=== PATIENT | female | born 1945 | race Caucasian/White ===

== ENCOUNTER 2021-06-04 08:01 | Outpatient (CLI) | payer MEDICARE, SELFPAY ==
--- NOTE | 2021-06-04 08:08 | MM_ITS ---
WS: [id number] VIEWS: MLO, CC, and ML views both breasts. 3D digital tomosynthesis is also included in this exam. Comparison made with prior exam of 12/16/2018 and 03/07/2020. Findings: There was no sign of mass, architectural distortion or suspicious calcification in either breast. Sta ble appearing postoperative and postradiation changes noted bilaterally.Scattered fibroglandular dens ities MM/[place] [id number] Impression: BI-RADS: 2-Benign FOLLOW-UP: 1 Year Follow-up This mammogram was also analyzed by the Computer Aided Detection System R2 Imag e Project Specialist.
== END 2021-06-04 08:02 | disposition home or self-care (01) ==
LOC: RADSHAW 08:03
PROVIDERS: PCP Internal Medicine; Visit Provider Internal Medicine
DX: Z85.3 Personal history of malignant neoplasm of breast (principal)
CPT/HCPCS: 77062

== ENCOUNTER → 2022-04-01 10:56 | Outpatient (BNVA) | payer MEDICARE, SELFPAY | PROVIDERS: PCP Family Medicine; Visit Provider Family Medicine | DX: E11.9 Type 2 diabetes mellitus without complications (principal); E78.5 Hyperlipidemia, unspecified | CPT/HCPCS: 80053; 80061; 83036; 85025 ==

== ENCOUNTER 2022-06-17 12:16 | Outpatient (CLI) | payer MEDICARE, SELFPAY ==
--- NOTE | 2022-06-17 12:24 | MM_ITS ---
WS: [id number] BILATERAL 3D TOMOSYNTHESIS DIGITAL DIAGNOSTIC MAMMOGRAPHY WITH CAD CLINICAL INFORMATION: ANNUAL - HX BREAST CA HISTORY: History of bilateral breast cancer. COMPARISON: June 04, 2021 TECHNIQUE: Bilateral CC, MLO, and ML views. FINDINGS: Scattered fibroglandular densities bilaterally. Surgical clips LEFT breast. Dystrophic calcifications RIGHT breast. RIGHT breast lucent centered calcifications. Volume loss RIGHT breast. Postoperative a nd postradiation changes bilaterally. No suspicious focal mass, asymmetry, calcifications, or architectural distortion. No evidence of jane gnancy. MM/[place] [id number] IMPRESSION: BI-RADS: 2-Benign FOLLOW UP: 1 Year Follow-up Recommend return to annual diagnostic mammography.
== END 2022-06-17 12:17 | disposition home or self-care (01) ==
LOC: RAD 12:18
PROVIDERS: PCP Family Medicine; Visit Provider Family Medicine
DX: Z12.31 Encounter for screening mammogram for malignant neoplasm of breast (principal); Z85.3 Personal history of malignant neoplasm of breast
CPT/HCPCS: 77062; G0279

== ENCOUNTER → 2022-07-23 11:22 | Outpatient (BNVA) | payer MEDICARE, SELFPAY | PROVIDERS: PCP Family Medicine; Visit Provider Family Medicine | DX: E11.9 Type 2 diabetes mellitus without complications (principal) | CPT/HCPCS: 80053; 83036 ==

== ENCOUNTER → 2023-02-21 15:04 | Outpatient (BNVA) | payer MEDICARE, SELFPAY | PROVIDERS: PCP Family Medicine; Visit Provider Family Medicine | DX: E11.9 Type 2 diabetes mellitus without complications (principal); K22.70 Barrett's esophagus without dysplasia | CPT/HCPCS: 80053; 82607; 83036 ==

== ENCOUNTER 2023-06-19 12:57 | Outpatient (CLI) | payer MEDICARE, SELFPAY ==
--- NOTE | 2023-06-19 13:05 | MM_ITS ---
WS: [id number] BILATERAL 3D TOMOSYNTHESIS DIGITAL DIAGNOSTIC MAMMOGRAPHY WITH CAD CLINICAL INFORMATION: Hx of Breast CA HISTORY: Bilateral breast cancer. COMPARISON: 2022 TECHNIQUE: Bilateral CC, MLO, and ML views. FINDINGS: Scattered fibroglandular densities bilaterally. Stable dystrophic calcifications upper outer RIGHT br east. Numerous eggshell lucent centered calcifications. Stable postoperative changes lumpectomy LEFT breast with treatment related changes bilaterally. Surgical clips LEFT breast. Surgical clips RIGHT a xilla. No suspicious focal mass, asymmetry, calcifications, or architectural distortion. No evidence of jane gnancy. IMPRESSION: MM/[place] [id number] BI-RADS: 2-Benign FOLLOW UP: 1 Year Follow-up Recommend return to annual diagnostic mammography.
== END 2023-06-19 12:58 | disposition home or self-care (01) ==
LOC: RAD 12:58
PROVIDERS: PCP Family Medicine; Visit Provider Family Medicine
DX: Z85.3 Personal history of malignant neoplasm of breast (principal); R92.323 Mammographic fibroglandular density, bilateral breasts; R92.1 Mammographic calcification found on diagnostic imaging of breast; Z98.890 Other specified postprocedural states
CPT/HCPCS: 77062; G0279

== ENCOUNTER → 2023-08-11 14:04 | Outpatient (BNVA) | payer MEDICARE, SELFPAY | PROVIDERS: PCP Family Medicine; Visit Provider Family Medicine | DX: E11.9 Type 2 diabetes mellitus without complications (principal) | CPT/HCPCS: 83036; 85025 ==

== ENCOUNTER 2023-11-10 19:10 | Emergency (ER) | payer MEDICARE, SELFPAY ==
[2023-11-10 19:16] VITALS: BP 147/74; PULSE 93; RESP 16; TEMP 36.8; O2SAT 90; BMI 25.7
--- NOTE | 2023-11-10 19:25 | XRR_ITS ---
PROCEDURE INFORMATION: Exam: XR Chest Exam date and time: 11/10/2023 7:36 PM Age: 78 years old Clinical indication: Other: Possible fb TECHNIQUE: Imaging protocol: Radiologic exam of the chest. Views: 1 view. COMPARISON: No relevant prior studies available. FINDINGS: Lungs: Moderate COPD. Lung base atelectasis or scarring. No consolidation. Scattered bilateral chest area clips are noted. Advise correlation. Pleural spaces: Unremarkable. No pleural effusion. No pneumothorax. Heart/Mediastinum: Advanced diffuse vascular calcification noted. No cardiomegaly. Bones/joints: Unremarkable. XR/XR chest 1V portable [id number] IMPRESSION: 1. No suspicious foreign body noted. 2. A few other chronic/incidental findings above.
--- NOTE | 2023-11-10 19:25 | XRR_ITS ---
PROCEDURE INFORMATION: Exam: XR Soft Tissue Neck Exam date and time: 11/10/2023 7:37 PM Age: 78 years old Clinical indication: Other: Possible fb TECHNIQUE: Imaging protocol: Radiologic exam of the soft tissues of the neck. COMPARISON: CR (CHEST, ) 11/10/2023 7:36 PM FINDINGS: Airway: Normal. No abnormal narrowing. Soft tissues: Normal. Normal epiglottis. Bones/joints: DJD. XR/XR soft tissue neck [id number] IMPRESSION: No neck foreign body noted.
[2023-11-10 21:22] VITALS: BP 119/69; RESP 14; O2SAT 99
[2023-11-10] MEDS: lidocaine 2% viscous 15 ML, aluminum-mag hydrox-simethicon 30 ML, sucralfate oral liq 1 GM PO (21:28)
[2023-11-10 22:20] VITALS: BP 157/76; PULSE 97; RESP 16; O2SAT 96
[2023-11-10] MEDS: dexamethasone 10 mg/mL INJ IM (22:21)
[2023-11-10 22:22] VITALS: BP 157/76; PULSE 97; RESP 16; O2SAT 96
--- NOTE | 2023-11-11 00:19 | W.ED.GENADLT ---
HPI - General Adult General: Chief complaint: Airway/Esophagus Foreign Body Stated complaint: throat swollen, possible object. Time Seen by Provider: 11/10/23 20:32 Source: patient Mode of arrival: ambulatory Limitations: no limitations History of Present Illness: Patient is a 78-year-old female presenting to the emergency department complaining of food bolus onset earlier today. States she was eating food she felt some of that get stuck, has a history of Alarcon's esophagus and feels that some of that food is still stuck. States that her throat hurts anytime she swallows and every time she tries to drink water she is unable to keep it down. Has not had a scope in 3 years. Noted to be 90% on room air on initial evaluation in triage. MD complaint: Potential Food bolus Onset (ago): hour(s) Associated symptoms: Deny chest pain, dyspnea, headache(s), nausea, rash, palpitations or vomiting Related Data Home Medications Medication Instructions Recorded Confirmed ascorbate calcium (vitamin C) 500 500 mg PO DAILY 04/01/22 09/07/23 mg tablet cholecalciferol (vitamin D3) 25 25 mcg PO DAILY 04/01/22 09/07/23 mcg (1,000 unit) capsule minerals tab PO 04/01/22 09/07/23 Previous Rx's Medication Instructions Recorded irbesartan 300 mg tablet 300 mg PO DAILY #90 tabs 02/21/23 pantoprazole 40 mg tablet,delayed 40 mg PO QAM #90 tabs 02/21/23 release metformin 500 mg tablet,extended 500 mg PO BID #180 tabs 04/28/23 release 24 hr ferrous sulfate 325 mg (65 mg 325 mg PO .q48 3 months #45 tabs 08/13/23 iron) tablet (Feosol) hydrochlorothiazide 25 mg tablet 25 mg PO DAILY #90 tabs 08/13/23 simvastatin 40 mg tablet 40 mg PO DAILY #90 tabs 10/15/23 prednisone 20 mg tablet 60 mg (3 x 20 mg) PO ONCE 5 days 11/10/23 #15 tabs Allergies Allergy/AdvReac Type Severity Reaction Status Date / Time colistin [From Coly-Mycin S] Allergy Severe unknown Verified 09/07/23 14:27 erythromycin base Allergy Severe unknown Verified 09/07/23 14:27 [From E-Mycin] hydrocortisone Allergy Severe unknown Verified 09/07/23 14:27 [From Coly-Mycin S] neomycin [From Coly-Mycin S] Allergy Severe unknown Verified 09/07/23 14:27 thonzonium bromide Allergy Severe unknown Verified 09/07/23 14:27 [From Coly-Mycin S] Review of Systems General: Reports: 10 or more systems reviewed and unremarkable except in HPI and below Const: Reports: other (Potential Food bolus); Denies: fever(s), chills or fatigue Eyes: Denies: change in vision ENMT: Reports: throat pain and odynophagia; Denies: ear or mastoid pain or nasal discharge Card: Denies: chest pain, palpitations, swelling of feet/ankles or lightheadedness Resp: Denies: dyspnea, productive cough or wheezing GI: Denies: abdominal pain, nausea, vomiting, diarrhea or constipation : Denies: flank pain, difficulty voiding, dysuria or urinary frequency Musc: Denies: neck pain, back pain or joint pain Skin/Breast: Denies: rash Neuro: Denies: headache(s), numbness in extremities or weakness in extremities PFSH ED PFSH: Medical History GERD (gastroesophageal reflux disease) Hiatal hernia Breast cancer Type 2 diabetes mellitus Essential hypertension Alarcon esophagus Surgical History H/O lumpectomy x2 Family History Mother No problems noted. Father Diabetes Sister Cancer Non-hodgkins lymphoma Denies family history of CAD (coronary artery disease) Clotting disorder Dementia Heart disease Hyperlipidemia Psychiatric illness Chronic kidney disease (CKD) Anesthesia complication Bleeding disorder Lung disease Hypertension Stroke Social History Smoking and tobacco/nicotine status: unknown if used tobacco/nicotine Quit status (tobacco/nicotine): has quit using Year quit tobacco: 2001 Alcohol intake: current Alcohol intake frequency: holidays/special occasions only Substance/Drug Use: never Caregiver/support person: No Lives independently: Yes Marital status: / Number of children: 0 service: No Current occupational status: retired Pets and animals: Yes (cat) Physical Exam Const: COMMON NORMALS: no acute distress, average body habitus, patient oriented x3, no limitations, healthy appearing, alert and well nourished GENERAL APPEARANCE: cooperative and comfortable ORIENTATION/CONSCIOUSNESS: Yes awake HENMT: COMMON NORMALS: normocephalic, atraumatic, hearing grossly normal bilaterally, external ears normal, Normal external nose present, Normal nasal mucous membranes and turbinates present and moist oral mucous membranes HEAD & SCALP: normocephalic and atraumatic NOSE: Normal external nose present and Normal nasal mucous membranes and turbinates present EXTERNAL EAR: Yes external ears normal Eye: COMMON NORMALS: Equal, round and reactive pupils present, EOMs intact bilaterally, conjunctivae normal and normal visual machado by confrontation CONJUNCTIVA: Yes conjunctivae normal PUPIL: Yes Equal, round and reactive pupils present Neck/C-Spine: COMMON NORMALS: full ROM, supple, no meningeal signs and no JVD Resp: COMMON NORMALS: normal respiratory effort, No retractions, No use of accessory muscles and clear to auscultation bilaterally AUSCULTATION: clear to auscultation bilaterally, no crackles, no rales, no rhonchi and no wheezes Cardio: COMMON NORMALS: no JVD, regular rate, regular rhythm, S1 normal heart sound present, S2 normal heart sound present, No gallops present (Cardio), No clicks present (Cardio), No murmurs present (Cardio), No rub (Cardio) and Peripheral pulses 2+ throughout RATE: regular rate RHYTHM: regular rhythm HEART SOUNDS: S1 normal heart sound present and S2 normal heart sound present PERIPHERAL PULSES: Peripheral pulses 2+ throughout GI: COMMON NORMALS: Normal to inspection, nondistended, normoactive bowel sounds present, Soft to palpation, non-tender, No hepatosplenomegaly present and no masses AUSCULTATION: Yes normoactive bowel sounds PALPATION: Yes Soft to palpation, No Guarding due to palpation present (GI), No Rigid due to palpation and Yes No hepatosplenomegaly present RECTAL EXAM: deferred : COMMON NORMALS: Yes no CVA tenderness BLADDER/KIDNEY EXAM: Yes no CVA tenderness Back/Pelvis: COMMON NORMALS: no CVA tenderness Extremity: COMMON NORMALS: normal to inspection and full ROM Neuro: COMMON NORMALS: patient oriented x3, moves all extremities, no focal motor deficits and no sensory deficits noted SENSORIUM/ORIENTATION: Yes alert MENINGEAL SIGNS: Yes no meningeal signs Psych: COMMON NORMALS: mental status grossly normal, cooperative and speech normal SPEECH: Yes normal speech Skin: COMMON NORMALS: no rashes or lesions noted GENERAL SKIN EXAM: no rashes or lesions noted Course Vital Signs: Vital signs: Vital Signs Temperature 98.2 F 11/10/23 19:16 Pulse Rate 97 11/10/23 22:22 Respiratory Rate 16 11/10/23 22:22 Blood Pressure 157/76 11/10/23 22:22 Pulse Oximetry 96 11/10/23 22:22 Oxygen Delivery Me thod Room Air 11/10/23 22:20 MDM - General Adult Medical Decision Making Patient choked on some food earlier, thinks it still stuck. Has a history of Alarcon's esophagus but has not been scoped in 3 years. She does take pantoprazole for this. X-ray of the chest and soft tissue neck were negative. She is able to keep some of the GI cocktail down today, spits the rest up. I do believe that she has some lower esophageal sphincter narrowing, likely secondary to the previous food bolus. However though she was noted to be 90% on room air prior to arrival, she has been noted to be 98 to 100% since. She also states that she thinks she can feel her throat opening up, still has some pain with swallowing. We will start her on some steroids for this, and she is to continue taking pantoprazole follow-up with primary care for further evaluation as I do believe she is due for another upper endoscopy on a nonemergent basis. Reasons to return were discussed thoroughly, patient is ready to go home and all other questions and concerns addressed. Care of patient discussed with Dr. Lin. Lab Data Radiology Impressions Chest X-Ray 11/10/23 19:25 IMPRESSION: 1. No suspicious foreign body noted. 2. A few other chronic/incidental findings above. Soft Tissue Neck X-Ray 11/10/23 19:25 IMPRESSION: No neck foreign body noted. All radiology interpretation(s) finalized by discharge Discharge Plan Discharge Patient Disposition: Home Clinical Impression: Alarcon esophagus Condition: Stable Prescriptions: New prednisone 20 mg tablet 60 mg PO ONCE 5 Days Qty: 15 0RF No Action ascorbate calcium (vitamin C) 500 mg tablet 500 mg PO DAILY cholecalciferol (vitamin D3) 25 mcg (1,000 unit) capsule 25 mcg PO DAILY minerals Tablet PO irbesartan 300 mg tablet 300 mg PO DAILY Qty: 90 3RF pantoprazole 40 mg tablet,delayed release (DR/EC) 40 mg PO QAM Qty: 90 2RF metformin 500 mg tablet extended release 24 hr 500 mg PO BID Qty: 180 2RF hydrochlorothiazide 25 mg tablet 25 mg PO DAILY Qty: 90 1RF ferrous sulfate [Feosol] 325 mg (65 mg iron) tablet 325 mg PO .q48 90 Days Qty: 45 1RF simvastatin 40 mg tablet 40 mg PO DAILY Qty: 90 1RF Discharge Orders: Discharge ED (Routine); Ordered 11/10/23 Ordered By: Jose Luis Swanson Referrals: Jamal Licona MD [Primary Care Provider] - Discharge Diet: As Directed Discharge Activity: Increase activity as tolerated Patient Instructions: Esophageal Foreign Body (ED) Activity Restrictions/Additional Instructions: Follow-up with primary care for further evaluation as discussed. Take steroids. Continue taking your pantoprazole and return with any new or worsening symptoms. Coding Level of Care Code ED Manufacturing Engineering Technologist for Jase Wang
== END 2023-11-10 22:23 | disposition home or self-care (01) ==
PROVIDERS: Emergency Provider Physician Assistant; PCP Family Medicine
DX: K22.70 Barrett's esophagus without dysplasia (principal); Z79.84 Long term (current) use of oral hypoglycemic drugs; Z87.891 Personal history of nicotine dependence; Z85.3 Personal history of malignant neoplasm of breast; E11.9 Type 2 diabetes mellitus without complications; I10 Essential (primary) hypertension
CPT/HCPCS: 70360; 71045; 96372; 99284; J1100

== ENCOUNTER → 2023-12-01 09:28 | Outpatient (BNVA) | payer MEDICARE, SELFPAY | PROVIDERS: PCP Family Medicine; Referring Provider Family Medicine; Visit Provider Surgery | DX: K21.9 Gastro-esophageal reflux disease without esophagitis (principal); K22.2 Esophageal obstruction; K22.719 Barrett's esophagus with dysplasia, unspecified; R13.10 Dysphagia, unspecified; D50.9 Iron deficiency anemia, unspecified | CPT/HCPCS: 99204 ==

== ENCOUNTER 2023-12-08 09:42 | Day surgery (SDC) | payer MEDICARE, SELFPAY ==
[2023-12-08 09:53] VITALS: BP 156/86; PULSE 97; RESP 18; TEMP 36.6; O2SAT 99; BMI 25.0
[2023-12-08] MEDS: sodium chloride 0.9% 1,000 ML 30 ML IV (10:04)
[2023-12-08 10:07] LABS: Glucose Point of Care 158 mg/dL (70-110)
--- NOTE | 2023-12-08 10:14 | ANES.PREANE2 ---
Pre-Anesthetic Assessment Height/Weight: Height 1.63 m Weight 66.224 kg Temp Pulse Resp BP Pulse Ox O2 Del Method 97.8 F 97 18 156/86 99 Room Air 12/08/23 09:53 12/08/23 09:53 12/08/23 09:53 12/08/23 09:53 12/08/23 09:53 12/08/23 09:53 Preop Diagnosis: Dysphagia, Iron Deficiency Anemia Operation Date: 12/08/23 11:00 Proposed Procedures p EGD Dilation W/ Balloon 73868, 84347, G0105, R13.10, D50.9, L22.2, K21.9, L22.719(Not Applicable) - DO karely Emery Colonoscopy(Not Applicable) - Oneil More DO Familial anesthetic complications: none Was Beta Jerri taken within 24 hours: N/A Was Clonidine taken within 24 hours: N/A Last intake: Intake Last Liquid Date 12/07/23 Last Liquid Time 22:00 Last Solid Date 12/06/23 Last Solid Time 18:00 Social Alcohol (once every 2 months-rare) Exam alert, oriented x 3, clear to auscultation bilaterally and regular rate & rhythm Airway Submandibular: within normal limits Cervical ROM: within normal limits Mallampati: Class II Dentition: loose (right upper incisor very loose patient educated on possible loss.) Pulmonary None reported CV/HEM Hypertension Hepatic None reported GI None reported Metabolic Diabetes Mellitus (non-insulin dependent) and Hyper[place] [facility] [place] None reported Neuropsych Anxiety and Depression Anesthetic Plan ASA status: 3 Anesthesia: MAC Medications/Allergies Home Medications Medication Instructions Recorded Confirmed Last Taken Type ascorbate calcium (vitamin C) 500 500 mg PO DAILY 04/01/22 12/04/23 12/06/23 History mg tablet irbesartan 300 mg tablet 300 mg PO DAILY #90 tabs 02/21/23 12/04/23 12/06/23 Rx metformin 500 mg tablet,extended 500 mg PO BID #180 tabs 04/28/23 12/04/23 12/06/23 Rx release 24 hr ferrous sulfate 325 mg (65 mg 325 mg PO .q48 3 months #45 tabs 08/13/23 12/04/23 12/06/23 Rx iron) tablet (Feosol) hydrochlorothiazide 25 mg tablet 25 mg PO DAILY #90 tabs 08/13/23 12/04/23 12/06/23 Rx pantoprazole 40 mg tablet,delayed 40 mg PO BID 6 weeks #84 tabs 12/01/23 12/04/23 12/06/23 Rx release (Protonix) calcium carbonate-vitamin D3 600 1 tab PO BEDTIME 12/04/23 12/04/23 12/06/23 History mg-125 unit tablet simvastatin 40 mg tablet 40 mg PO BEDTIME 12/04/23 12/04/23 12/06/23 History Allergies Allergy/AdvReac Type Severity Reaction Status Date / Time colistin [From Coly-Mycin S] Allergy Severe unknown Verified 12/01/23 09:31 erythromycin base Allergy Severe unknown Verified 12/01/23 09:31 [From E-Mycin] hydrocortisone Allergy Severe unknown Verified 12/01/23 09:31 [From Coly-Mycin S] neomycin [From Coly-Mycin S] Allergy Severe unknown Verified 12/01/23 09:31 thonzonium bromide Allergy Severe unknown Verified 12/01/23 09:31 [From Coly-Mycin S] Current Medications Generic Name Dose Route Start Last Admin Trade Name Freq PRN Reason Stop Dose Admin Sodium Chloride 1,000 mls @ 30 mls/hr 12/08/23 09:45 12/08/23 10:04 Sodium Chloride 0.9% IV 12/09/23 09:44 30 mls/hr .Q24H ANGIE Administration PFSH Anesthesia Medical History GERD (gastroesophageal reflux disease) Hiatal hernia Breast cancer Type 2 diabetes mellitus Essential hypertension Alarcon esophagus Surgical History H/O lumpectomy x2 Family History Mother No problems noted. Father Diabetes Sister Cancer Non-hodgkins lymphoma Denies family history of CAD (coronary artery disease) Clotting disorder Dementia Heart disease Hyperlipidemia Psychiatric illness Chronic kidney disease (CKD) Anesthesia complication Bleeding disorder Lung disease Hypertension Stroke Social History Smoking and tobacco/nicotine status: former use of tobacco/nicotine Quit status (tobacco/nicotine): has quit using Year quit tobacco: 2001 Alcohol intake: current Alcohol intake frequency: holidays/special occasions only Substance/Drug Use: never Caregiver/support person: No Lives independently: Yes Marital status: / Number of children: 0 service: No Current occupational status: retired Pets and animals: Yes (cat) Data Anesthesia Cardiac Studies: No Data to Display
--- NOTE | 2023-12-08 10:55 | W.PM.OPSUD ---
Surgery/Procedure H&P Update DATE OF PROCEDURE: December 08, 2023 DATE H&P PERFORMED: 12/01/23 H&P UPDATE INFORMATION: I have reviewed H&P completed within last 30 days, I have examined patient prior to procedure and No changes to prior documentation PREOP DIAGNOSIS: Dysphagia, Iron Deficiency Anemia PLANNED PROCEDURE: Operation Date: 12/08/23 11:00 Proposed Procedures p EGD Dilation W/ Balloon 72660, 38886, G0105, R13.10, D50.9, L22.2, K21.9, L22.719(Not Applicable) - DO karely Emery Colonoscopy(Not Applicable) - Oneil More DO
[2023-12-08 11:27] VITALS: BP 113/60; PULSE 89; RESP 16; TEMP 36.3; O2SAT 99
[2023-12-08 11:40] VITALS: BP 103/88; PULSE 91; RESP 18; O2SAT 99
--- NOTE | 2023-12-08 12:12 | ANE.PACU2 ---
Inpatient post-anesthesia follow up: Airway intact: Yes Vital signs: Temperature 97.4 F Pulse Rate 91 Respiratory Rate 18 Blood Pressure 103/88 Pulse Oximetry 99 Oxygen Delivery Me thod Room Air Oxygen Flow Rate Fraction of Inspir ed Oxygen Hydration adequate: Yes Nausea and vomiting: No Pain level: 1 Mental status: Baseline
== END 2023-12-08 12:12 | disposition home or self-care (01) ==
PROVIDERS: PCP Family Medicine; Visit Provider Surgery
PROC: 0DJD8ZZ Inspection of Lower Intestinal Tract, Via Natural or Artificial Opening Endoscopic (ICD-10-PCS; CPT 45378; 2023-12-08 11:00)
DX: R13.10 Dysphagia, unspecified (principal); D50.9 Iron deficiency anemia, unspecified; K22.2 Esophageal obstruction; K21.9 Gastro-esophageal reflux disease without esophagitis; K22.719 Barrett's esophagus with dysplasia, unspecified; D12.5 Benign neoplasm of sigmoid colon; K57.30 Diverticulosis of large intestine without perforation or abscess without bleeding; K64.8 Other hemorrhoids; K29.80 Duodenitis without bleeding; I10 Essential (primary) hypertension; E11.9 Type 2 diabetes mellitus without complications; E78.5 Hyperlipidemia, unspecified; Z85.3 Personal history of malignant neoplasm of breast; Z87.891 Personal history of nicotine dependence
CPT/HCPCS: 36416; 43239; 43249; 45385; 82962; 88305; J2704; J7030

== ENCOUNTER → 2023-12-22 11:09 | Outpatient (BNVA) | payer MEDICARE, SELFPAY | PROVIDERS: PCP Family Medicine; Visit Provider Surgery | DX: Z09 Encounter for follow-up examination after completed treatment for conditions other than malignant neoplasm (principal); K22.719 Barrett's esophagus with dysplasia, unspecified; K22.2 Esophageal obstruction; R13.10 Dysphagia, unspecified; K21.9 Gastro-esophageal reflux disease without esophagitis | CPT/HCPCS: 99214 ==

== ENCOUNTER → 2024-02-09 11:47 | Outpatient (BNVA) | payer MEDICARE, SELFPAY | PROVIDERS: PCP Family Medicine; Visit Provider Family Medicine | DX: E11.9 Type 2 diabetes mellitus without complications (principal); D50.9 Iron deficiency anemia, unspecified | CPT/HCPCS: 80053; 82728; 83036; 83550; 85025 ==

== ENCOUNTER 2024-06-21 11:58 | Outpatient (CLI) | payer MEDICARE, SELFPAY ==
--- NOTE | 2024-06-21 12:45 | MM_ITS ---
WS: [id number] BILATERAL 3D TOMOSYNTHESIS DIGITAL DIAGNOSTIC MAMMOGRAPHY WITH CAD CLINICAL INFORMATION: Breast Ca History HISTORY: History of bilateral breast cancer COMPARISON: 06/19/2023 TECHNIQUE: Bilateral CC, MLO, and ML views. FINDINGS: Scattered fibroglandular densities bilaterally. Dystrophic calcifications bilaterally are stable in appearance. Stable surgical clips LEFT breast. Surgical clips RIGHT axilla. Treatment-related changes bilaterally. No suspicious focal mass, asymmetry, calcifications, or architectural distortion. No evidence of malignancy. MM/MM diag tomosynthesis [id number] IMPRESSION: DENSITY: There are scattered areas of fibroglandular density. BI-RADS: 2 - Benign. FOLLOW UP: 1 Year Follow-up Recommend return to annual diagnostic mammography.
== END 2024-06-21 11:59 | disposition home or self-care (01) ==
LOC: RAD 11:59
PROVIDERS: PCP Family Medicine; Visit Provider Family Medicine
DX: C50.919 Malignant neoplasm of unspecified site of unspecified female breast (principal); Z12.39 Encounter for other screening for malignant neoplasm of breast; R92.323 Mammographic fibroglandular density, bilateral breasts; R92.1 Mammographic calcification found on diagnostic imaging of breast
CPT/HCPCS: 77062; G0279

== ENCOUNTER → 2024-07-30 11:57 | Outpatient (BNVA) | payer MEDICARE, SELFPAY | PROVIDERS: PCP Family Medicine; Visit Provider Family Medicine | DX: I10 Essential (primary) hypertension (principal); E11.9 Type 2 diabetes mellitus without complications; D50.9 Iron deficiency anemia, unspecified | CPT/HCPCS: 80053; 82728; 83036; 83550; 85025 ==

== ENCOUNTER → 2025-01-31 11:26 | Outpatient (BNVA) | payer MEDICARE, SELFPAY | PROVIDERS: PCP Family Medicine; Visit Provider Family Medicine | DX: E11.22 Type 2 diabetes mellitus with diabetic chronic kidney disease (principal); N18.31 Chronic kidney disease, stage 3a | CPT/HCPCS: 80053; 83036; 85025 ==

== ENCOUNTER → 2025-02-22 11:22 | Outpatient (BNVA) | payer MEDICARE, SELFPAY | PROVIDERS: PCP Family Medicine; Visit Provider Family Medicine | DX: D64.9 Anemia, unspecified (principal); N18.31 Chronic kidney disease, stage 3a | CPT/HCPCS: 80048; 82746; 83550 ==